=== PATIENT | female | born 1955 | race Caucasian/White ===

== ENCOUNTER → 2024-11-09 10:20 | Outpatient (REF) | payer MEDICARE, SELFPAY | LOC: RCS 10:20 | PROVIDERS: ATTENDING PHYSICIAN Internal Medicine Cardiovascular Disease; FAMILY PHYSICIAN Internal Medicine | DX: I48.0 Paroxysmal atrial fibrillation (principal); I10 Essential (primary) hypertension | CPT/HCPCS: 93306 ==

== ENCOUNTER 2024-11-09 14:44 | Emergency (ER) | payer MEDICARE, SELFPAY ==
[2024-11-09 14:48] VITALS: BP 166/85
[2024-11-09 16:51] VITALS: BP 148/84
--- NOTE | 2024-11-09 16:55 | ED.GENMED ---
History of Present Illness
General
Chief Complaint: Chest Pain
Source: patient
Exam Limitations: none
Time Seen by Provider: 11/09/24 16:36
Nursing documentation reviewed up to this point in time: agreed with
History of Present Illness
History of Present Illness:
Patient to ED for eval of chest pain. States she was here at the hospital for preadmission testing. SHe is scheduled for cardiac ablation 11/23. She states after her chest CT she developed chest tightness and SOB. She was sent to ED for
evaluation. She states her symptoms resolved while in waiting room. No associated n/v/diaphoresis. No radiation of pain. No dizziness. SHe has had chest pain in the past but this was different. No history of issues with IV contrast in the
past. Currently she is symptom free.
Past History
Past History
ED Past Medical History: Arrthythmia and HTN
ED Past Surgical History: Other (carotid surgery)
Social History
Living: with family
Review of Systems
Review of Systems
Allergies reviewed?: Yes
All Other Systems: ROS reviewed and negative except as documented in HPI and ROS
Constitutional: Reports no symptoms
Respiratory: Reports trouble breathing
Cardiac: Reports chest pain (chest tightness)
ABD/GI: Reports no symptoms
: Reports no symptoms
Musculoskeletal: Reports no symptoms
Skin: Reports no symptoms
Neurological: Reports no symptoms
Psychiatric: Reports no symptoms
Phy Exam
General Physical Exam
General Presentation: well appearing and no apparent distress
General age: appears stated age
General Skin: warm and dry
General Habitus: normal
General Mental: alert
Cardiovascular Exam
Cardiovascular Exam: regular rate/rhythm and no edema
Pulmonary Exam
Pulmonary Exam: lungs clear and no respiratory distress
Gastrointestinal Exam
Gastrointestinal Exam: normal bowel sounds and non tender
Musculoskeletal Exam
Musculoskeletal Exam: full ROM and neuro vasc intact
Skin Exam
Skin Exam: normal color, warm/dry and no rash
Psychiatric Exam
Psychiatric Exam: normal mood/affect
Scores
Heart Score for Chest Pain Patients
STEMI patient?: No
History: Moderately Suspicious
ECG: Normal
Age: >/= 65 years
Risk Factors: >/= 3 Risk Factors or History of CAD
Troponin: </= Normal Limit
Heart Score for Chest Pain Patients: 5
Heart Score Risk: 20.3% MACE over next 6 weeks
Course
Orders/Labs/Results
Orders:
Orders
11/09/24 14:46
Electrocardiogram (*1) Urgent
Reason for Study: Chest Pain
EKG- Treatment ONCE
11/09/24 16:57
Troponin I Urgent
11/09/24 18:40
Electrocardiogram (*1) Urgent
Reason for Study: Chest Pain
EKG- Treatment ONCE
11/09/24 18:49
Troponin I Urgent
Vital Signs
Initial and Last Documented VS:
Initial Vital Signs
Temp Pulse Resp BP Pulse Ox
97.6 F 71 18 166/85 98
11/09/24 14:48 11/09/24 14:48 11/09/24 14:48 11/09/24 14:48 11/09/24 14:48
Last Documented Vital Signs
Temp Pulse Resp BP Pulse Ox
97.6 F 66 21 110/67 96
11/09/24 14:48 11/09/24 19:30 11/09/24 19:30 11/09/24 19:00 11/09/24 19:15
*Radiology
Radiology exam reviewed: radiology read reviewed
*Pulse Oximetry
Patient hypoxic: no
*Critical Care Note
Total Time (30-74mins, 75-104mins- exclusive of procedures): Not Applicable
Update Note
Update Note:
Patient to ED for eval of chest tightness after IV conctrasts CT today. Symptms resolved prior to eD arrival and she has remained symptoms free. Labsr reviewed. Troponin neg x 2. No changes on EKD. WIll discharge home, she will follow up with
cardiology in the AM. Given instructions on s/s to return to ED and she is agreeable to plan.
ED Attending Note
-
Portions of this chart may have been created with voice recognition software.� Occasional wrong word or��sound alike� substitutions may have occurred due to the inherent limitations of voice recognition software.
Discharge Plan
Departure
Patient Disposition: Home (Routine Discharge)
Date of Disposition: 11/09/24
Time of Disposition: 19:30
Patient with high blood pressure during this ER visit?: No
Condition: Good
Covid-19: Not Applicable
Discharge Problem:
Chest pain
Instructions: Chest Pain PCP Follow Up
Prescriptions:
No Action
chlorthalidone 25 MG tablet
25 mg PO DAILY
nadolol 20 MG tablet
20 mg PO QPM
Eliquis 5 MG tablet
5 mg PO BID 90 Days Qty: 180 3RF
clopidogrel [Plavix] 75 mg Tablet
75 mg PO SUTUTH
lisinopril 40 mg Tablet
40 mg PO DAILY
rosuvastatin [Crestor] 10 mg Tablet
10 mg PO DAILY@1400
Leqvio 284 mg/1.5 mL Syringe
284 mg SC [id number]
potassium 99 mg Tablet
99 mg PO DAILY
vitamin B complex Tablet
1 tab PO DAILY
magnesium 250 mg Tablet
250 mg PO DAILY
fluticasone propionate [Flonase Allergy Relief] 50 mcg/actuation [place],Suspension
2 spray INTRANASAL DAILY
cholecalciferol (vitamin D3) [Vitamin D3] 25 mcg (1,000 unit) Capsule
25 mcg PO DAILY
coenzyme Q10 [CoQ-10] 100 mg Capsule
100 mg PO DAILY@1400
Referrals:
Oneal Alvarez MD [Family Provider] -
Activity Restrictions/Additional Instructions:
Return to the emergency department immediately for return of your symptoms. Follow up with Dr. Castañeda in the AM
Interventions
Interventions:
*Risk Screen - Suicide Last Done: 11/09/24 14:48
*General Assessment Last Done: 11/09/24 14:48
*Neglect/Abuse Screening Last Done: 11/09/24 19:36
*ED- Fall Risk Assessment Last Done: 11/09/24 14:48
*ED COVID-19 Vaccine History Last Done: 11/09/24 14:48
*Nursing Disposition Last Done: 11/09/24 19:36
ED- Cardiac Assessment Last Done: 11/09/24 17:08
Discharge Date and Time
Discharge Date/Time: 11/09/24 19:36
Print Language: RWANDAN
[2024-11-09 17:00] VITALS: BP 120/79
[2024-11-09 17:32] LABS: Troponin I < 0.012 ng/ml
[2024-11-09 19:00] VITALS: BP 110/67
[2024-11-09 19:17] LABS: Troponin I < 0.012 ng/ml
== END 2024-11-09 19:36 | disposition home or self-care (01) ==
LOC: EMR 14:44
PROVIDERS: Nurse Practitioner; EMERGENCY PHYSICIAN Student in an Organized Health Care Education/Training Program; FAMILY PHYSICIAN Internal Medicine
DX: R07.89 Other chest pain (principal); I10 Essential (primary) hypertension
CPT/HCPCS: 99284; 84484; 93005

== ENCOUNTER 2024-11-23 05:48 | Day surgery (SDC) | payer MEDICARE, SELFPAY ==
[2024-11-09 12:45] VITALS: BMI 25.3
--- NOTE | 2024-11-11 14:05 | W.PN.UPDATE ---
Update Note
Progress Note Update
Chest CT
IMPRESSION:
Incidental 5 mm pulmonary nodule in the right middle lobe. An optional follow-up chest CT can be performed in 12 months if the patient is considered at high risk per Fleischner Society guidelines. The [facility] Pulmonary Nodule Advisory
Board will be notified.
--patient made aware of pulmonary nodule--faxed to PCP and verified-LM
[2024-11-23] VITALS (18 sets, daily range): BP systolic 107–136; BP diastolic 58–77; BMI 25.3
--- NOTE | 2024-11-23 08:08 | ITS.CL.ABL ---
Supervisor Patching - Ablation
Ablation
Procedure Report:
ELECTROPHYSIOLOGIC STUDY AND POSSIBLE ABLATION
DATE: 11/23/24
Primary Care Provider: Oneal Gomes
INDICATION:
Symptomatic Atrial Fibrillation.
Persistent
HISTORY: See H and P.
Symptomatic AF, poorly controlled with attempted medical therapy
She carries a history of persistent atrial fibrillation as well as atherosclerotic vascular disease with prior left carotid endarterectomy for carotid arterial disease
Regarding rhythm control attempts, she had been on antiarrhythmic drug therapy, flecainide.� Flecainide was discontinued after her coronary artery stenting in October 2022.
Since that time she is experience increasing symptom burden of atrial fibrillation.� She describes that over the past half year she is experiencing 3-4 episodes of per month each lasting several hours.� Symptoms include shortness of breath, fatigue,
palpitations and at times dizziness.
HAS-BLED: 1
Age
CHADSVASc: 4
HTN
Age
Vascular Dz: Carotid arterial disease, prior left carotid endarterectomy, coronary artery disease, prior coronary artery stenting.
F Gender
PRESENTING RHYTHM: SR
HISTORY: See H and P.
Symptomatic AF, poorly controlled with attempted medical therapy.
ANTICOAGULATION: Eliquis 5 mg twice daily
'TIME-OUT': called and confirmed.
SEDATION/ANESTHESIA: provided via the anesthesia department using general anesthesia.
PROCEDURE:
Ultrasound Guidance with real-time visualization of needle insertion and vessel patency performed by ar for femoral venous Vascular Access.
Under real-time US guidance, the needle was advanced with negative pressure into the vein. The needle was seen entering the vessel lumen with a good return of dark red flow, the syringe was removed, non-pulsatile, dark red blood low was noted and
the wire was passed without difficulty, then the needle was removed. US confirmed the wire was in the vein, not going into an artery,
Images were taken and saved for the patient's permanent record. Imaging findings typical femoral venous anatomy. Direct visualization of needle puncture into the femoral vein was observed and recorded.
A decapolar CS catheter was placed within the CS for mapping and pacing.
The intracardiac ultrasound catheter was positioned in the RA for continuous intracardiac ultrasound imaging.
Heparin bolus and infusion to target ACT at 300 -350 seconds was administered. Transseptal puncture was performed. This entailed advancing a sheath with dilator into the superior vena cava and withdrawing both (monitoring intracardiac ultrasound,
fluoroscopy and tip pressure) with the tip oriented toward the atrial septum. The fossa ovalis was engaged (indicated by sudden displacement of the sheath tip as well as tenting of the fossa seen on intracardiac ultrasound).
The multipolar mapping catheter (Poachable Grid) was initially positioned through the transseptal sheath for high density mapping.
Geometry and voltage mapping was performed using the [employer] multipolar grid catheter. Ensite-X was utilized for three-dimensional electroanatomical mapping.
A 3-D map was created using Ensite-X in Voxel mode. A 3-D reconstructed CT image was compared to the 3-D Navex map to assist in anatomic evaluation, mapping and ablation.
The [employer] Pulse Select PFA catheter and system was used for cardiac ablation. Catheter positioning was guided and confirmed using both I.C.E. and fluoroscopy.
PV isolation approach was used to electrically isolate each PV ostia (LSPV, LIPV, RSPV, RIPV).
Once osteo isolation was completed, additional energy applications/additional ablation set was required to accomplish wide area circumferential ablation around each of the pulmonary vein sets. This required additional ablation lesions to be placed
wide from the PV ostia at each of the four PVs.
Remapping with the [place] multipolar grid catheter found that all PVPs were eliminated at each vein demonstrating entrance block. Also pacing from the multipolar mapping catheter around the the circumference of the ostia was performed at 10 ma and
2.0 msec output to assess for exit block. This demonstrated electrical isolation at each of the pulmonary vein ostia (LSPV, LIPV, RSPV, RIPV). Patient was also performed widely from the PV ostia finding wide area circumferential entrance and exit
block at each of the PVs.
Programmed electrostimulation (burst atrial pacing as well as delivery of atrial decremental extrastimuli down to atrial ERP) failed to induce any sustained arrhythmias.
I.C.E. :
Pre-Ablation Post-Ablation
LVEF: 55 % 55 %
WMA: none none
Pericardial effusion: trace posterior trace posterior
COMPLICATIONS:
None
SUMMARY:
- Mapping and ablation to isolate the PVs
- Additional AF ablation set after PVI.
- 3-D Electroanatomical Mapping
- Intracardiac Ultrasound
- Ultrasound guidance for vascular access
Post ablation, I discussed today's findings and results with the patient's friend, Gaetano.
RECOMMENDATIONS:
- Observe in monitored bed.
- Maintain oral anticoagulation.
- Office visit with me is scheduled for March 10, 2025
Copy to:
Oneal Gomes
[2024-11-23 08:55] LABS: ACT-LR - POC 334 Seconds (116-155)
[2024-11-23 09:13] LABS: ACT-LR - POC 331 Seconds (116-155)
[2024-11-23 09:31] LABS: ACT-LR - POC 351 Seconds (116-155)
--- NOTE | 2024-11-23 11:25 | PTCARENOTE ---
Received the patient from the solder making laborer in her bed. The patient is aaox3. Her vital signs are stable. NSR is noted on the monitor. Her right groin figure 8 dressing is c/d/i. Her right groin is soft to palpitation. A right pedal pulse is noted. I
oriented her to her room. I instructed her on her activity restrictions and expected OOB time. Her friend is at her bedside.
[2024-11-23] MEDS: ZESTRIL 40 MG PO (11:36)
--- NOTE | 2024-11-23 12:23 | CM ---
CM following for DC planning needs.
Met w/ patient and friend, Gaetano at bedside.
Pt. resides alone in a private, 1 story home.
Functionally, patient is indep. at baseline w/ ADLs, mobility without the use of any assisted device.
Antic. DC plan is for home w/ no needs.
Will follow.
[2024-11-23] MEDS: CRESTOR 10 MG PO (14:37)
--- NOTE | 2024-11-23 15:43 | PTCARENOTE ---
Assisted the patient to the bathroom. Her gait is steady. No oozing noted from right groin site.
[2024-11-23] MEDS: CORGARD 20 MG PO (18:04)
[2024-11-23] MEDS: ELIQUIS 5 MG PO (19:27)
--- NOTE | 2024-11-23 21:01 | PTCARENOTE ---
Rec'd pt at change of shift. Pt AAO*3, VSS, and SR on TELE monitor. Pt denies any pain or discomfort. R groin site CDI, and pt verbalizes understanding of activity restriction. Pt resting with call ibarra in reach and plan of care ongoing.
[2024-11-24 03:20] VITALS: BP 114/58
[2024-11-24 03:22] VITALS: BP 114/58
[2024-11-24 03:56] LABS: Hematocrit 32.6 % (37.0-47.0); Hemoglobin 11.5 g/dL (12.0-16.0); Mean Corp Hgb Conc. 35.3 g/dL (33.0-37.0); Mean Corpuscular Volume 82.1 fL (81.0-99.0); Mean Platelet Volume 11.6 fL (7.4-10.4); Platelet Count 189 10^3/uL (130-400); Red Blood Cell Count 3.97 10^6/uL (4.20-5.40); Red Cell Dist. Width 12.7 % (11.5-14.5)
[2024-11-24 04:05] LABS: Blood Urea Nitrogen 24 mg/dl (7-17); Calcium 9.3 mg/dl (8.4-10.2); Carbon Dioxide 24 mmol/L (22-30); Chloride 102 mmol/L (98-107); Estimated Creatinine Clearance 73 ml/min; Glucose 127 mg/dl (70-99); Magnesium 1.5 mg/dl (1.6-2.3); Potassium 3.7 mmol/L (3.5-5.1); Sodium 134 mmol/L (135-145); eGFR > 60.00
[2024-11-24 06:45] VITALS: BP 95/57
[2024-11-24] MEDS: ELIQUIS 5 MG PO (08:02)
[2024-11-24 08:05] VITALS: BP 122/64
[2024-11-24] MEDS: ZESTRIL 40 MG PO (08:06)
[2024-11-24] MEDS: Hygroton 25 MG PO (08:07)
[2024-11-24] MEDS: PLAVIX 75 MG PO (08:09)
[2024-11-24] MEDS: MAGNESIUM OXIDE 500 MG PO (08:12)
--- NOTE | 2024-11-24 09:40 | CM ---
Patient for DC to home today.
There are no identified DC needs.
Plan- home.
--- NOTE | 2024-11-24 10:41 | W.PN.CARDCBS ---
Addendum entered and electronically signed by Oneal Castañeda MD 11/24/24 12:13:
Patient seen, interviewed and examined by me.
Well-appearing, no acute distress
Regular rate and rhythm with normal S1 and S2, no S3 no S4. There is a grade 1/6 apical holosystolic murmur and no rubs. PMI is normally placed.
Lungs are clear to auscultation bilaterally without wheezes rales or rhonchi.
Abdomen soft nontender nondistended with normoactive bowel sounds
Extremities show trace pretibial edema bilaterally no clubbing or cyanosis.
Neurologic exam is grossly nonfocal.
Review of ECG and telemetry finds she has been maintaining sinus rhythm since her ablation yesterday. I reviewed the findings of yesterday's study as well as yesterday's results with her in detail. All of her questions have been answered. She
should maintain uninterrupted oral anticoagulation.
Drop in hemoglobin likely delusional, will follow-up with repeat H&H.
I reviewed discharge instructions with her as well as activity restrictions which essentially are no heavy lifting exercise, gardening for 5 days
I have made follow-up arrangements for her to see me in the office on March 10, 2025.
Original Note:
Today's Communication / Plan
-
psot PVI, stable for d/c home
Impression / Plan
-
Primary Care Provider: Oneal Gomes
Primary manager infusion: Oneal Castañeda MD
Impression:
symptomatic persistent Afib
post PVI 11/23/24
SVT post AVNRT ablation
CAD PCI LCx 10/2022
HTN
HLD
NILA post L CEA 2017
Osteoarthritis
Plan:
post ablation feels good
tele SR no sig ectopy
groin site soft, no HT
Hbg dropped 14.6->11.5, denies hematuria, hematochezia, most likely dilutional
OAC Eliquis
continue Nadolol
Activity restrictions reviewed
f/u Dr. Bellamy in 3 mo
home today
Progress Note - Maintenance Technician 3Rd Shift
Subjective
Date of Service: November 24, 2024
denies cp, sob
Objective
Labs:
11/24/24 03:30
11/24/24 03:30
Labs
Hgb 11.5 g/dL (12.0-16.0) L 11/24/24 03:30
Hct 32.6 % (37.0-47.0) L 11/24/24 03:30
Plt Count 189 10^3/uL (130-400) 11/24/24 03:30
Sodium 134 mmol/L (135-145) L 11/24/24 03:30
Potassium 3.7 mmol/L (3.5-5.1) 11/24/24 03:30
BUN 24 mg/dl (7-17) H 11/24/24 03:30
Creatinine 0.7 mg/dL (0.6-1.0) 11/24/24 03:30
Glucose 127 mg/dl (70-99) H 11/24/24 03:30
Vital Signs and I&O:
Vital Signs
Temp Pulse Resp BP Pulse Ox
98.1 F 67 20 122/64 96
11/24/24 06:45 11/24/24 08:06 11/24/24 06:45 11/24/24 08:06 11/24/24 06:45
Vital Signs
Temp Pulse Resp BP Pulse Ox
98.1 F 67 20 122/64 96
11/24/24 06:45 11/24/24 08:06 11/24/24 06:45 11/24/24 08:06 11/24/24 06:45
Intake & Output
04/08/25 04/09/25 04/10/25 04/11/25
06:59 06:59 06:59 06:59
Intake Total 1919
Balance 1919
Physical Exam
Physical Exam
NAD, AOX3
S1, S2, RRR
CTAB,non labored
SNTND Bsx4
R fem site c/d/i no HT, soft
[2024-11-24 11:01] VITALS: BP 119/66
--- NOTE | 2024-11-24 13:41 | W.DS.TRANS ---
DC Summary - Corporate Coordinator
-
Discharge Instructions:
Sleep Apnea Risk Intermediate
Discharge Diagnosis/Procedures Atrial fibrillation post ablation
Diet Low Cholesterol
Driving Restrictions No driving for 24 hours
Instructions:
Stand-Alone Forms: DC Instructions- Cath/EP Lab
Changes to Home Medications: No
Discharge Medications:
DC Medications w/original date entered in [email or web address]
apixaban 5 mg tablet (Eliquis) 5 mg PO BID 90 days #180 tabs 03/24/21
chlorthalidone 25 mg tablet 25 mg PO DAILY Blood pressure 03/24/21
nadolol 20 mg tablet 20 mg PO QPM Blood pressure 03/24/21
cholecalciferol (vitamin D3) 25 mcg (1,000 unit) capsule (Vitamin D3) 25 mcg PO DAILY 11/07/24
clopidogrel 75 mg tablet (Plavix) 75 mg PO SUTUTH 11/07/24
coenzyme Q10 100 mg capsule (CoQ-10) 100 mg PO DAILY@1400 11/07/24
fluticasone propionate 50 mcg/actuation nasal spray,suspension (Flonase Allergy Relief) 2 spray intranasal DAILY 11/07/24
inclisiran 284 mg/1.5 mL subcutaneous syringe (Leqvio) 284 mg SC [id number] 11/07/24
lisinopril 40 mg tablet 40 mg PO DAILY 11/07/24
magnesium 250 mg tablet 250 mg PO DAILY 11/07/24
potassium 99 mg tablet 99 mg PO DAILY 11/07/24
rosuvastatin 10 mg tablet (Crestor) 10 mg PO DAILY@1400 11/07/24
vitamin B complex 1 tab PO DAILY 11/07/24
Home Medication Changes
Pending Results: No
== END 2024-11-24 13:23 | disposition home or self-care (01) ==
LOC: CATH 05:48
PROVIDERS: Nurse Practitioner Adult Health; ATTENDING PHYSICIAN Internal Medicine Cardiovascular Disease; FAMILY PHYSICIAN Internal Medicine
DX: I48.19 Other persistent atrial fibrillation (principal); Z00.6 Encounter for examination for normal comparison and control in clinical research program; I25.10 Atherosclerotic heart disease of native coronary artery without angina pectoris; I10 Essential (primary) hypertension; Z79.899 Other long term (current) drug therapy; Z79.01 Long term (current) use of anticoagulants; E78.5 Hyperlipidemia, unspecified; M19.90 Unspecified osteoarthritis, unspecified site; Z79.02 Long term (current) use of antithrombotics/antiplatelets; I47.19 Other supraventricular tachycardia
CPT/HCPCS: C1732; C1733; C1894; C1766; C1769; C1730; C1892; C1759; 80048; 83735; 85027; 85347; 86900; 86901; 93005; 93656; 93657